=== PATIENT | male | born 1945 | race Caucasian/White ===

== ENCOUNTER 2019-06-06 19:45 | Inpatient (IN) | payer MEDICARE, BC ==
[~2019-06-06] VITALS: Ht 167.6 cm; Wt 84.4 kg
[~2019-06-06 19:45] MED LIST: Acetaminophen PO; LEVO500T2 PO; LOSA50TA3 PO; METF-440 PO; TAMS-3 PO
[2019-06-06] MEDS ORDERED: FENTANYL CITRATE 100 MCG/2 ML AMPUL IV ONE ×2 (21:00→22:15)
[2019-06-06] MEDS ORDERED: ONDANSETRON 4 MG/2 ML VIAL IV ONE ×2 (21:00→22:15)
[2019-06-06] MEDS ORDERED: ONDANSETRON 4 MG/2 ML VIAL ONE ×2 (21:18→22:29)
[2019-06-06] MEDS ORDERED: FENTANYL CITRATE 100 MCG/2 ML AMPUL ONE ×2 (21:18→22:30)
[2019-06-06 22:52] LABS: BASOPHILS # (AUTO) 0.1 K/uL (0.0-8.0); BASOPHILS % (AUTO) 0.3 % (0.0-2.0); EOSINOPHILS % (AUTO) 0.1 % (0.0-7.0); HEMATOCRIT 40.2 % (36.7-47.1); HEMOGLOBIN 12.9 g/dL (12.5-16.3); LYMPHOCYTES # (AUTO) 1.3 K/uL (20.0-40.0); LYMPHOCYTES % (AUTO) 4.8 % (20.5-51.5); MEAN CORPUSCULAR HEMOGLOBIN 28.1 uug (23.8-33.4); MEAN CORPUSCULAR HGB CONC 32 g/dL (32.5-36.3); MEAN CORPUSCULAR VOLUME 87.2 fL (73.0-96.2); MONOCYTES # (AUTO) 1.3 K/uL (2.0-10.0); NEUTROPHILS # (AUTO) 24.2 K/uL (1.8-8.9); NEUTROPHILS % (AUTO) 89.8 % (38.5-71.5); PLATELET COUNT (AUTO) 369 K/uL (152-348); RED BLOOD CELL COUNT(AUTO) 4.61 MIL/uL (4.06-5.63)
[2019-06-06 22:58] LABS: CREATININE 1.1 mg/dL (0.6-1.3); POTASSIUM 5.3 mmol/L (3.5-5.1)
[2019-06-06 23:09] LABS: BILIRUBIN,DIRECT 0.3 mg/dL (0.0-0.2); BILIRUBIN,TOTAL 1.1 mg/dL (0.2-1.0); TOTAL PROTEIN, SERUM 7.7 g/dL (6.4-8.2)
[2019-06-06] MEDS ORDERED: METF-495 PO (23:53)
[2019-06-06] MEDS ORDERED: METO-357 PO (23:53)
[2019-06-06] MEDS ORDERED: LOSA100T3 PO (23:53)
[2019-06-07] MEDS ORDERED: MAGNESIUM HYDROXIDE 30 ML LIQUID UDC PO PRN (01:00)
[2019-06-07] MEDS ORDERED: Z GUARD REMEDY PASTE 57 GM TUBE TOP PRN (01:00)
[2019-06-07] MEDS ORDERED: ACETAMINOPHEN 325 MG TABLET PO PRN (01:00)
[2019-06-07] MEDS ORDERED: HYDROMORPHONE 1 MG/1 ML DISP.SYRIN IV PRN (01:00)
[2019-06-07] MEDS ORDERED: HYDROCODONE/APAP 5-325MG TABLET PO PRN (01:00)
[2019-06-07 01:15] VITALS: BP 136/76
[2019-06-07 06:14] VITALS: BP 125/76
[2019-06-07 11:02] VITALS: BP 105/63
[2019-06-07] MEDS ORDERED: IV NORMAL SALINE 500 ML IV ONE (11:30)
[2019-06-07] MEDS ORDERED: DEXTROSE 50% 50 ML DISP.SYRIN IV PRN (11:30)
[2019-06-07] MEDS: IV NS 1000 ML 1,000 ML IV PRN (12:20)
[2019-06-07] MEDS: INSULIN REGULAR, HUMAN 300 UNIT/3 ML VIAL SQ PRN (12:39)
[2019-06-07] MEDS: BLOOD SUGAR DIAGNOSTIC 1 EACH STRIP VI SCH ×3 (12:40→20:20)
[2019-06-07 15:00] VITALS: BP 115/70
[2019-06-07 17:33] LABS: *BILIRUBIN,URIN 1+ (NEGATIVE); *BLOOD, URINE 2+ (NEGATIVE); *COLOR,URINE DARK YELLOW (YELLOW); *KETONES,URINE TRACE (NEGATIVE); *UROBILINOGEN,URINE 0.2 E.U./dl (NORMAL); LEUKOCYTE ESTERASE ,URINE NEGATIVE (NEGATIVE); NITRITE, URINE NEGATIVE (NEGATIVE); UGLUCOSE NEGATIVE (NEGATIVE)
[2019-06-07 17:44] LABS: *CLARITY,URINE HAZY (CLEAR)
[2019-06-07 17:45] LABS: RBC,URINE 20-50 /HPF (0-3); SQUAMOUS EPITHELIAL CELL,UR FEW /HPF (NONE SEEN)
[2019-06-07 17:46] LABS: MUCUS,URINE MANY /LPF (0-FEW); URINE AMORPHOUS URATE FEW /HPF
[2019-06-07] MEDS: HYDROMORPHONE 2 MG/1 ML DISP.SYRIN IV PRN (19:05)
[2019-06-07 19:44] VITALS: BP 126/61
[2019-06-07] MEDS: INSULIN REGULAR, HUMAN 300 UNITS/3 ML VIAL SQ PRN (20:26)
[2019-06-08] MEDS: IV NS 1000 ML 1,000 ML IV PRN ×2 (02:21→18:05)
[2019-06-08 05:03] VITALS: BP 127/72
[2019-06-08] MEDS: BLOOD SUGAR DIAGNOSTIC 1 EACH STRIP VI SCH ×4 (06:33→21:08)
[2019-06-08 06:49] LABS: BASOPHILS # (AUTO) 0.1 K/uL (0.0-8.0); EOSINOPHILS # (AUTO) 0.4 K/uL (0.0-0.7); LYMPHOCYTES # (AUTO) 1.9 K/uL (20.0-40.0); MONOCYTES # (AUTO) 0.8 K/uL (2.0-10.0)
[2019-06-08 06:53] LABS: BILIRUBIN,DIRECT 0.3 mg/dL (0.0-0.2); BILIRUBIN,TOTAL 1.9 mg/dL (0.2-1.0); CREATININE 0.7 mg/dL (0.6-1.3); MAGNESIUM 1.6 mg/dL (1.8-2.4); PHOSPHOROUS 3.3 mg/dL (2.5-4.9); POTASSIUM 4.6 mmol/L (3.5-5.1); TOTAL PROTEIN, SERUM 6.6 g/dL (6.4-8.2)
[2019-06-08 06:59] LABS: THYROID STIMULATING HORMONE 3.509 mIU/mL (0.358-3.740)
[2019-06-08 07:01] LABS: BASOPHILS % (AUTO) 0.7 % (0.0-2.0); EOSINOPHILS % (AUTO) 4.8 % (0.0-7.0); LYMPHOCYTES % (AUTO) 22.3 % (20.5-51.5); MEAN CORPUSCULAR HEMOGLOBIN 29.2 uug (23.8-33.4); MEAN CORPUSCULAR HGB CONC 33 g/dL (32.5-36.3); MEAN CORPUSCULAR VOLUME 88.2 fL (73.0-96.2); MONOCYTES % (AUTO) 8.9 % (0.0-11.0); NEUTROPHILS % (AUTO) 63.3 % (38.5-71.5); PLATELET COUNT (AUTO) 207 K/uL (152-348)
[2019-06-08 07:02] LABS: NEUTROPHILS # (AUTO) 5.4 K/uL (1.8-8.9)
[2019-06-08 07:06] LABS: HEMATOCRIT 31.7 % (36.7-47.1); HEMOGLOBIN 10.5 g/dL (12.5-16.3); WHITE BLOOD COUNT (AUTO) 8.6 K/uL (3.6-10.2)
[2019-06-08] MEDS: INSULIN REGULAR, HUMAN 300 UNIT/3 ML VIAL SQ PRN ×2 (07:51→12:21)
[2019-06-08] MEDS: HYDROMORPHONE 2 MG/1 ML DISP.SYRIN IV PRN ×2 (09:28→22:16)
[2019-06-08 12:00] VITALS: BP 155/88
[2019-06-08] MEDS: MAGNESIUM SULFATE/D5W 100 ML IV SCH ×2 (12:12→13:39)
[2019-06-08 15:45] VITALS: BP 153/88
[2019-06-08] MEDS ORDERED: HYDR2DIS IV (16:00)
[2019-06-08 18:46] LABS: BASOPHILS # (AUTO) 0.1 K/uL (0.0-8.0); BASOPHILS % (AUTO) 0.7 % (0.0-2.0); EOSINOPHILS # (AUTO) 0.2 K/uL (0.0-0.7); EOSINOPHILS % (AUTO) 2.9 % (0.0-7.0); HEMATOCRIT 29.2 % (36.7-47.1); HEMOGLOBIN 9.6 g/dL (12.5-16.3); LYMPHOCYTES # (AUTO) 1.5 K/uL (20.0-40.0); LYMPHOCYTES % (AUTO) 17.9 % (20.5-51.5); MEAN CORPUSCULAR HEMOGLOBIN 28.9 uug (23.8-33.4); MEAN CORPUSCULAR HGB CONC 33 g/dL (32.5-36.3); MEAN CORPUSCULAR VOLUME 87.8 fL (73.0-96.2); MONOCYTES # (AUTO) 0.8 K/uL (2.0-10.0); MONOCYTES % (AUTO) 9.3 % (0.0-11.0); NEUTROPHILS # (AUTO) 5.7 K/uL (1.8-8.9); NEUTROPHILS % (AUTO) 69.2 % (38.5-71.5); PLATELET COUNT (AUTO) 203 K/uL (152-348); RED BLOOD CELL COUNT(AUTO) 3.33 MIL/uL (4.06-5.63); WHITE BLOOD COUNT (AUTO) 8.3 K/uL (3.6-10.2)
[2019-06-08 19:40] VITALS: BP 144/74
[2019-06-09 05:00] VITALS: BP 157/78
[2019-06-09] MEDS: BLOOD SUGAR DIAGNOSTIC 1 EACH STRIP VI SCH ×4 (06:37→20:29)
[2019-06-09 06:49] LABS: CARBON DIOXIDE 27 mmol/L (21-32); CHLORIDE 105 mmol/L (98-107); CREATININE 0.5 mg/dL (0.6-1.3); GLUCOSE 115 mg/dL (74-106); MAGNESIUM 1.9 mg/dL (1.8-2.4); POTASSIUM 4.6 mmol/L (3.5-5.1); UREA NITROGEN, BLOOD 13 mg/dL (7-18)
[2019-06-09] MEDS: IV NS 1000 ML 1,000 ML IV PRN ×2 (06:53→20:21)
[2019-06-09] MEDS: HYDROMORPHONE 2 MG/1 ML DISP.SYRIN IV PRN (09:32)
[2019-06-09 11:22] LABS: BILIRUBIN,DIRECT 0.4 mg/dL (0.0-0.2); BILIRUBIN,TOTAL 2.3 mg/dL (0.2-1.0); TOTAL PROTEIN, SERUM 6.3 g/dL (6.4-8.2)
[2019-06-09 11:55] VITALS: BP 170/90
[2019-06-09] MEDS: METOPROLOL SUCCINATE XL 50 MG TAB.SR.24H PO SCH (13:52)
[2019-06-09 15:44] VITALS: BP 158/74
[2019-06-09] MEDS: LOSARTAN POTASSIUM 50 MG TABLET PO SCH (20:21)
[2019-06-09] MEDS: INSULIN REGULAR, HUMAN 300 UNITS/3 ML VIAL SQ PRN (20:33)
[2019-06-09 20:51] VITALS: BP 148/84
[2019-06-09] MEDS: ENOXAPARIN SODIUM 40 MG/0.4 ML DISP.SYRIN SQ SCH (21:35)
[2019-06-09] MEDS: KETOROLAC TROMETHAMINE 30 MG INJ IVP SCH (22:30)
[2019-06-10 05:14] VITALS: BP 150/87
[2019-06-10] MEDS: KETOROLAC TROMETHAMINE 30 MG INJ IVP SCH ×3 (05:25→21:58)
[2019-06-10 06:14] LABS: BASOPHILS # (AUTO) 0.1 K/uL (0.0-8.0); BASOPHILS % (AUTO) 1.1 % (0.0-2.0); EOSINOPHILS # (AUTO) 0.4 K/uL (0.0-0.7); EOSINOPHILS % (AUTO) 5.9 % (0.0-7.0); HEMATOCRIT 26.8 % (36.7-47.1); HEMOGLOBIN 8.9 g/dL (12.5-16.3); LYMPHOCYTES # (AUTO) 1.5 K/uL (20.0-40.0); LYMPHOCYTES % (AUTO) 20.6 % (20.5-51.5); MEAN CORPUSCULAR HEMOGLOBIN 28.9 uug (23.8-33.4); MEAN CORPUSCULAR HGB CONC 33 g/dL (32.5-36.3); MEAN CORPUSCULAR VOLUME 87.4 fL (73.0-96.2); MONOCYTES # (AUTO) 0.6 K/uL (2.0-10.0); MONOCYTES % (AUTO) 8.4 % (0.0-11.0); NEUTROPHILS # (AUTO) 4.5 K/uL (1.8-8.9); PLATELET COUNT (AUTO) 210 K/uL (152-348); RED BLOOD CELL COUNT(AUTO) 3.07 MIL/uL (4.06-5.63); WHITE BLOOD COUNT (AUTO) 7.1 K/uL (3.6-10.2)
[2019-06-10 06:23] LABS: ALANINE AMINOTRANSFERASE 7 U/L (16-63); ALKALINE PHOSPHATASE 99 U/L (50-136); ASPARTATE AMINOTRANSFERASE 7 U/L (15-37); BILIRUBIN,DIRECT 0.4 mg/dL (0.0-0.2); BILIRUBIN,TOTAL 3.7 mg/dL (0.2-1.0); CARBON DIOXIDE 26 mmol/L (21-32); CHLORIDE 107 mmol/L (98-107); CREATININE 0.5 mg/dL (0.6-1.3); GLUCOSE 110 mg/dL (74-106); POTASSIUM 4.3 mmol/L (3.5-5.1); TOTAL PROTEIN, SERUM 6.2 g/dL (6.4-8.2); UREA NITROGEN, BLOOD 11 mg/dL (7-18)
[2019-06-10] MEDS: BLOOD SUGAR DIAGNOSTIC 1 EACH STRIP VI SCH ×4 (06:55→21:57)
[2019-06-10] MEDS: IV NS 1000 ML 1,000 ML IV PRN ×2 (09:41→22:53)
[2019-06-10] MEDS: METOPROLOL SUCCINATE XL 50 MG TAB.SR.24H PO SCH ×2 (09:46→09:55)
[2019-06-10 11:01] VITALS: BP 153/85
[2019-06-10 15:15] VITALS: BP 145/75
[2019-06-10] MEDS: ONDANSETRON 4 MG/2 ML VIAL IV PRN (17:15)
[2019-06-10 20:57] VITALS: BP 174/83
[2019-06-10] MEDS: ENOXAPARIN SODIUM 40 MG/0.4 ML DISP.SYRIN SQ SCH (21:06)
[2019-06-10] MEDS: LOSARTAN POTASSIUM 50 MG TABLET PO SCH (21:09)
[2019-06-10] MEDS: ZOLPIDEM 5 MG TABLET PO PRN ×2 (21:09→22:17)
[2019-06-10] MEDS: HYDROMORPHONE 2 MG/1 ML DISP.SYRIN IV PRN (21:42)
[2019-06-11 05:11] VITALS: BP 132/62
[2019-06-11] MEDS: KETOROLAC TROMETHAMINE 30 MG INJ IVP SCH ×2 (06:44→14:06)
[2019-06-11] MEDS: HYDROMORPHONE 2 MG/1 ML DISP.SYRIN IV PRN ×2 (06:44→22:08)
[2019-06-11] MEDS: BLOOD SUGAR DIAGNOSTIC 1 EACH STRIP VI SCH ×4 (06:53→22:08)
[2019-06-11 07:11] LABS: BASOPHILS # (AUTO) 0.1 K/uL (0.0-8.0); BASOPHILS % (AUTO) 0.8 % (0.0-2.0); EOSINOPHILS # (AUTO) 0.4 K/uL (0.0-0.7); EOSINOPHILS % (AUTO) 5.2 % (0.0-7.0); HEMATOCRIT 29.4 % (36.7-47.1); HEMOGLOBIN 9.6 g/dL (12.5-16.3); LYMPHOCYTES # (AUTO) 1.1 K/uL (20.0-40.0); LYMPHOCYTES % (AUTO) 15.3 % (20.5-51.5); MEAN CORPUSCULAR HEMOGLOBIN 28.3 uug (23.8-33.4); MEAN CORPUSCULAR HGB CONC 33 g/dL (32.5-36.3); MEAN CORPUSCULAR VOLUME 86.5 fL (73.0-96.2); MONOCYTES # (AUTO) 0.6 K/uL (2.0-10.0); MONOCYTES % (AUTO) 7.9 % (0.0-11.0); NEUTROPHILS # (AUTO) 5.3 K/uL (1.8-8.9); NEUTROPHILS % (AUTO) 70.8 % (38.5-71.5); PLATELET COUNT (AUTO) 257 K/uL (152-348); WHITE BLOOD COUNT (AUTO) 7.4 K/uL (3.6-10.2)
[2019-06-11 07:23] LABS: BILIRUBIN,DIRECT 0.4 mg/dL (0.0-0.2); BILIRUBIN,TOTAL 3.8 mg/dL (0.2-1.0); CREATININE 0.6 mg/dL (0.6-1.3); POTASSIUM 4.2 mmol/L (3.5-5.1); TOTAL PROTEIN, SERUM 6.6 g/dL (6.4-8.2)
[2019-06-11 08:06] LABS: HEPATITIS A AB, IgM Negative (Negative)
[2019-06-11] MEDS: METOPROLOL SUCCINATE XL 50 MG TAB.SR.24H PO SCH (08:32)
[2019-06-11] MEDS: IV NS 1000 ML 1,000 ML IV PRN (12:46)
[2019-06-11 16:22] VITALS: BP 157/81
[2019-06-11 19:45] VITALS: BP 132/81
[2019-06-11] MEDS: INSULIN REGULAR, HUMAN 300 UNITS/3 ML VIAL SQ PRN (21:00)
[2019-06-11] MEDS: LOSARTAN POTASSIUM 50 MG TABLET PO SCH (21:17)
[2019-06-11] MEDS: ENOXAPARIN SODIUM 40 MG/0.4 ML DISP.SYRIN SQ SCH (22:08)
[2019-06-12] MEDS: IV NS 1000 ML 1,000 ML IV PRN (03:57)
[2019-06-12 05:15] VITALS: BP 153/70
[2019-06-12] MEDS: BLOOD SUGAR DIAGNOSTIC 1 EACH STRIP VI SCH ×4 (06:32→20:49)
[2019-06-12 07:03] LABS: BILIRUBIN,DIRECT 0.4 mg/dL (0.0-0.2); CREATININE 0.6 mg/dL (0.6-1.3)
[2019-06-12 07:04] LABS: ALANINE AMINOTRANSFERASE 8 U/L (16-63); ALKALINE PHOSPHATASE 93 U/L (50-136); ASPARTATE AMINOTRANSFERASE 7 U/L (15-37)
[2019-06-12 07:10] LABS: POTASSIUM 4.1 mmol/L (3.5-5.1)
[2019-06-12 07:11] LABS: BILIRUBIN,TOTAL 3.8 mg/dL (0.2-1.0); CARBON DIOXIDE 26 mmol/L (21-32); CHLORIDE 107 mmol/L (98-107); GLUCOSE 98 mg/dL (74-106); UREA NITROGEN, BLOOD 18 mg/dL (7-18)
[2019-06-12] MEDS: HYDROMORPHONE 2 MG/1 ML DISP.SYRIN IV PRN ×2 (07:23→15:24)
[2019-06-12 07:46] LABS: HEMATOCRIT 27.9 % (40-50); HEMOGLOBIN 9.3 G/DL (14.0-18.0); MEAN CORPUSCULAR HEMOGLOBIN 29.2 UUG (27.0-31.0); MEAN CORPUSCULAR HGB CONC 33 g/dL (32.0-37.0); MEAN CORPUSCULAR VOLUME 87.8 FL (82.0-92.0); NEUTROPHILS % (AUTO) 65.2 % (38.5-71.5); PLATELET COUNT (AUTO) 243 K/UL (150-450); RED BLOOD CELL COUNT(AUTO) 3.17 MIL/UL (4.7-6.1); WHITE BLOOD COUNT (AUTO) 7.7 K/UL (4.0-11.2)
[2019-06-12 07:47] LABS: BASOPHILS # (AUTO) 0.1 K/uL (0.0-8.0); BASOPHILS % (AUTO) 0.7 % (0.0-2.0); EOSINOPHILS # (AUTO) 0.4 K/uL (0.0-0.7); EOSINOPHILS % (AUTO) 5.5 % (0.0-7.0); LYMPHOCYTES # (AUTO) 1.4 K/UL (0.8-4.8); LYMPHOCYTES % (AUTO) 18.6 % (20.5-51.5); MONOCYTES # (AUTO) 0.8 K/UL (0.1-1.30); NEUTROPHILS # (AUTO) 5.1 K/UL (1.8-8.9)
[2019-06-12] MEDS: METOPROLOL SUCCINATE XL 50 MG TAB.SR.24H PO SCH (08:47)
[2019-06-12 11:00] VITALS: BP 160/88
[2019-06-12] MEDS: INSULIN REGULAR, HUMAN 300 UNIT/3 ML VIAL SQ PRN (12:15)
[2019-06-12 16:21] VITALS: BP 128/83
[2019-06-12 19:43] VITALS: BP 163/86
[2019-06-12] MEDS: LOSARTAN POTASSIUM 50 MG TABLET PO SCH (20:30)
[2019-06-12] MEDS: ENOXAPARIN SODIUM 40 MG/0.4 ML DISP.SYRIN SQ SCH (20:48)
[2019-06-13] MEDS: HYDROMORPHONE 2 MG/1 ML DISP.SYRIN IV PRN ×2 (04:16→21:23)
[2019-06-13 04:18] VITALS: BP 161/79
[2019-06-13] MEDS: BLOOD SUGAR DIAGNOSTIC 1 EACH STRIP VI SCH ×4 (06:56→21:26)
[2019-06-13] MEDS: METOPROLOL SUCCINATE XL 50 MG TAB.SR.24H PO SCH (08:32)
[2019-06-13 11:33] VITALS: BP 157/87
[2019-06-13] MEDS: INSULIN REGULAR, HUMAN 300 UNIT/3 ML VIAL SQ PRN ×3 (11:57→21:29)
[2019-06-13 16:00] VITALS: BP 158/86
[2019-06-13 20:51] VITALS: BP 162/86
[2019-06-13] MEDS: LOSARTAN POTASSIUM 50 MG TABLET PO SCH (21:21)
[2019-06-13] MEDS: ENOXAPARIN SODIUM 40 MG/0.4 ML DISP.SYRIN SQ SCH (21:30)
[2019-06-14 05:25] VITALS: BP 155/81
[2019-06-14] MEDS: BLOOD SUGAR DIAGNOSTIC 1 EACH STRIP VI SCH ×4 (06:39→20:48)
[2019-06-14 06:58] LABS: HEMATOCRIT 28.8 % (40-50); HEMOGLOBIN 9.6 G/DL (14.0-18.0); MEAN CORPUSCULAR VOLUME 87.4 FL (82.0-92.0); WHITE BLOOD COUNT (AUTO) 7.6 K/UL (4.0-11.2)
[2019-06-14 06:59] LABS: ALKALINE PHOSPHATASE 96 U/L (50-136); BILIRUBIN,DIRECT 0.5 mg/dL (0.0-0.2); BILIRUBIN,TOTAL 4.3 mg/dL (0.1-1.0); CARBON DIOXIDE 27 mmol/L (21-32); CHLORIDE 104 mmol/L (98-107); CREATININE 0.5 mg/dL (0.6-1.3); EOSINOPHILS # (AUTO) 0.3 K/uL (0.0-0.7); EOSINOPHILS % (AUTO) 4.5 % (0.0-7.0); GLUCOSE 123 mg/dL (74-106); LYMPHOCYTES # (AUTO) 1.8 K/UL (0.8-4.8); LYMPHOCYTES % (AUTO) 23.2 % (20.5-51.5); MEAN CORPUSCULAR HGB CONC 33 g/dL (32.0-37.0); MONOCYTES # (AUTO) 0.7 K/UL (0.1-1.30); MONOCYTES % (AUTO) 9.4 % (0.0-11.0); NEUTROPHILS # (AUTO) 4.7 K/UL (1.8-8.9); NEUTROPHILS % (AUTO) 61.9 % (38.5-71.5); PLATELET COUNT (AUTO) 304 K/UL (150-450); POTASSIUM 4.1 mmol/L (3.5-5.1); UREA NITROGEN, BLOOD 17 mg/dL (7-20)
[2019-06-14 07:00] LABS: ALANINE AMINOTRANSFERASE < 6 U/L (16-63); ASPARTATE AMINOTRANSFERASE 7 U/L (15-37); BASOPHILS # (AUTO) 0.1 K/uL (0.0-8.0); TOTAL PROTEIN, SERUM 6.6 g/dL (6.4-8.2)
[2019-06-14] MEDS: MULTIVIT, IRON, MIN NO. 8, FA TABLET PO SCH (09:25)
[2019-06-14] MEDS: METOPROLOL SUCCINATE XL 50 MG TAB.SR.24H PO SCH (09:27)
[2019-06-14 12:12] VITALS: BP 132/70
[2019-06-14] MEDS: INSULIN REGULAR, HUMAN 300 UNIT/3 ML VIAL SQ PRN ×2 (12:23→16:45)
[2019-06-14] MEDS: LORAZEPAM 0.5 MG TABLET PO PRN (12:32)
[2019-06-14 16:15] VITALS: BP 153/85
[2019-06-14 19:59] VITALS: BP 169/89
[2019-06-14] MEDS: LOSARTAN POTASSIUM 50 MG TABLET PO SCH (20:39)
[2019-06-14] MEDS: ZOLPIDEM 5 MG TABLET PO PRN (20:41)
[2019-06-14] MEDS: INSULIN REGULAR, HUMAN 300 UNITS/3 ML VIAL SQ PRN (20:47)
[2019-06-14] MEDS: ENOXAPARIN SODIUM 40 MG/0.4 ML DISP.SYRIN SQ SCH (20:48)
[2019-06-14] MEDS ORDERED: ALBUTEROL SULFATE 2.5 MG/3 ML NEBU NEB PRN (22:30)
[2019-06-14] MEDS ORDERED: GUAIFENESIN/DEXTROMETHORPHAN TAB.SR.12H PO ONE (22:35)
[2019-06-14] MEDS ORDERED: GUAIFENESIN LA 600 MG TABLET.SA PO ONE (23:09)
[2019-06-15 05:00] VITALS: BP 141/68
[2019-06-15] MEDS: BLOOD SUGAR DIAGNOSTIC 1 EACH STRIP VI SCH ×4 (06:31→20:29)
[2019-06-15] MEDS: MULTIVIT, IRON, MIN NO. 8, FA TABLET PO SCH (08:08)
[2019-06-15] MEDS: GUAIFENESIN/DEXTROMETHORPHAN TAB.SR.12H PO SCH ×2 (08:09→20:36)
[2019-06-15] MEDS: METOPROLOL SUCCINATE XL 50 MG TAB.SR.24H PO SCH (08:09)
[2019-06-15 11:22] VITALS: BP 141/72
[2019-06-15] MEDS: INSULIN REGULAR, HUMAN 300 UNIT/3 ML VIAL SQ PRN ×2 (12:07→17:18)
[2019-06-15 15:21] VITALS: BP 142/78
[2019-06-15] MEDS: LOSARTAN POTASSIUM 50 MG TABLET PO SCH (20:18)
[2019-06-15 20:21] VITALS: BP 124/66
[2019-06-15] MEDS: ENOXAPARIN SODIUM 40 MG/0.4 ML DISP.SYRIN SQ SCH (20:26)
[2019-06-15] MEDS: INSULIN REGULAR, HUMAN 300 UNITS/3 ML VIAL SQ PRN (20:31)
[2019-06-16 05:56] LABS: BASOPHILS # (AUTO) 0.1 K/uL (0.0-8.0); BASOPHILS % (AUTO) 0.7 % (0.0-2.0); EOSINOPHILS # (AUTO) 0.4 K/uL (0.0-0.7); EOSINOPHILS % (AUTO) 4.2 % (0.0-7.0); HEMATOCRIT 27.3 % (36.7-47.1); HEMOGLOBIN 9.1 g/dL (12.5-16.3); LYMPHOCYTES # (AUTO) 2.1 K/uL (20.0-40.0); LYMPHOCYTES % (AUTO) 21.6 % (20.5-51.5); MEAN CORPUSCULAR HGB CONC 33 g/dL (32.5-36.3); MONOCYTES # (AUTO) 0.9 K/uL (2.0-10.0); MONOCYTES % (AUTO) 8.9 % (0.0-11.0); NEUTROPHILS # (AUTO) 6.4 K/uL (1.8-8.9); NEUTROPHILS % (AUTO) 64.6 % (38.5-71.5); PLATELET COUNT (AUTO) 367 K/uL (152-348); RED BLOOD CELL COUNT(AUTO) 3.14 MIL/uL (4.06-5.63)
[2019-06-16 06:14] LABS: BILIRUBIN,DIRECT 0.5 mg/dL (0.0-0.2); CREATININE 0.6 mg/dL (0.6-1.3); POTASSIUM 4.1 mmol/L (3.5-5.1)
[2019-06-16] MEDS: BLOOD SUGAR DIAGNOSTIC 1 EACH STRIP VI SCH ×4 (06:32→21:00)
[2019-06-16 06:42] VITALS: BP 136/77
[2019-06-16] MEDS: MULTIVIT, IRON, MIN NO. 8, FA TABLET PO SCH (08:23)
[2019-06-16] MEDS: GUAIFENESIN/DEXTROMETHORPHAN TAB.SR.12H PO SCH ×2 (08:23→21:00)
[2019-06-16] MEDS: METOPROLOL SUCCINATE XL 50 MG TAB.SR.24H PO SCH (08:24)
[2019-06-16] MEDS: HYDROMORPHONE 2 MG/1 ML DISP.SYRIN IV PRN (10:59)
[2019-06-16 11:44] VITALS: BP 160/84
[2019-06-16] MEDS: INSULIN REGULAR, HUMAN 300 UNIT/3 ML VIAL SQ PRN ×2 (12:54→17:26)
[2019-06-16] MEDS: LIDOCAINE 5% PATCH TD SCH (15:00)
[2019-06-16 20:37] VITALS: BP 117/51
[2019-06-16] MEDS: ENOXAPARIN SODIUM 40 MG/0.4 ML DISP.SYRIN SQ SCH (21:00)
[2019-06-16] MEDS: LOSARTAN POTASSIUM 50 MG TABLET PO SCH (21:00)
[2019-06-17] MEDS: LORAZEPAM 0.5 MG TABLET PO PRN (02:41)
[2019-06-17] MEDS: ONDANSETRON 4 MG/2 ML VIAL IV PRN (02:41)
[2019-06-17] MEDS: BLOOD SUGAR DIAGNOSTIC 1 EACH STRIP VI SCH ×4 (06:43→20:23)
[2019-06-17] MEDS: MULTIVIT, IRON, MIN NO. 8, FA TABLET PO SCH (09:09)
[2019-06-17] MEDS: LIDOCAINE 5% PATCH TD SCH (09:09)
[2019-06-17] MEDS: METOPROLOL SUCCINATE XL 50 MG TAB.SR.24H PO SCH (09:10)
[2019-06-17] MEDS: GUAIFENESIN/DEXTROMETHORPHAN TAB.SR.12H PO SCH ×2 (09:47→20:13)
[2019-06-17 12:03] VITALS: BP 136/76
[2019-06-17] MEDS: HYDROCODONE/APAP 5-325MG TABLET PO PRN (12:03)
[2019-06-17] MEDS ORDERED: LIDO30AD10 TD (12:04)
[2019-06-17] MEDS: INSULIN REGULAR, HUMAN 300 UNIT/3 ML VIAL SQ PRN ×2 (12:34→17:26)
[2019-06-17 16:00] VITALS: BP 133/71
[2019-06-17 19:49] VITALS: BP 143/70
[2019-06-17] MEDS: LOSARTAN POTASSIUM 50 MG TABLET PO SCH (20:12)
[2019-06-17] MEDS: ENOXAPARIN SODIUM 40 MG/0.4 ML DISP.SYRIN SQ SCH ×2 (20:13→20:28)
[2019-06-17] MEDS: INSULIN REGULAR, HUMAN 300 UNITS/3 ML VIAL SQ PRN (20:24)
[2019-06-17] MEDS: ZOLPIDEM 5 MG TABLET PO PRN (22:28)
[2019-06-18 04:50] VITALS: BP 135/76
[2019-06-18] MEDS: BLOOD SUGAR DIAGNOSTIC 1 EACH STRIP VI SCH ×4 (06:33→20:19)
[2019-06-18] MEDS: GUAIFENESIN/DEXTROMETHORPHAN TAB.SR.12H PO SCH ×2 (08:18→20:28)
[2019-06-18] MEDS: LIDOCAINE 5% PATCH TD SCH (08:18)
[2019-06-18] MEDS: MULTIVIT, IRON, MIN NO. 8, FA TABLET PO SCH (08:18)
[2019-06-18] MEDS: METOPROLOL SUCCINATE XL 50 MG TAB.SR.24H PO SCH (08:18)
[2019-06-18] MEDS ORDERED: LIDOCAINE 5% PATCH TD SCH (09:00)
[2019-06-18 11:16] VITALS: BP 121/69
[2019-06-18] MEDS: INSULIN REGULAR, HUMAN 300 UNIT/3 ML VIAL SQ PRN ×3 (12:03→20:27)
[2019-06-18] MEDS: HYDROCODONE/APAP 5-325MG TABLET PO PRN (14:50)
[2019-06-18] MEDS: LOSARTAN POTASSIUM 50 MG TABLET PO SCH (20:11)
[2019-06-18] MEDS: HYDROMORPHONE 2 MG/1 ML DISP.SYRIN IV PRN (20:11)
[2019-06-18 20:24] VITALS: BP 145/75
[2019-06-18] MEDS: ENOXAPARIN SODIUM 40 MG/0.4 ML DISP.SYRIN SQ SCH (20:28)
[2019-06-19 05:32] VITALS: BP 120/74
[2019-06-19] MEDS: BLOOD SUGAR DIAGNOSTIC 1 EACH STRIP VI SCH ×2 (06:32→11:30)
[2019-06-19] MEDS: MULTIVIT, IRON, MIN NO. 8, FA TABLET PO SCH (09:03)
[2019-06-19] MEDS: GUAIFENESIN/DEXTROMETHORPHAN TAB.SR.12H PO SCH (09:04)
[2019-06-19] MEDS: LIDOCAINE 5% PATCH TD SCH (09:04)
[2019-06-19] MEDS: METOPROLOL SUCCINATE XL 50 MG TAB.SR.24H PO SCH (09:05)
[2019-06-19 09:11] VITALS: BP 136/76
[2019-06-19] MEDS: HYDROMORPHONE 2 MG/1 ML DISP.SYRIN IV PRN (12:08)
[2019-06-19] MEDS ORDERED: HYDR-3326 PO (12:26)
== END 2019-06-19 13:00 | disposition home or self-care (01) | DRG 551 ==
LOC: ER 19:49 → MEDSURG3 23:40 → UNDOADMIN 06-07 00:33 → MEDSURG3 06-07 00:33
PROVIDERS: ADMIT Student in an Organized Health Care Education/Training Program; ATTEND Nurse Practitioner Acute Care
DX: S32.018A Other fracture of first lumbar vertebra, initial encounter for closed fracture (principal); R53.2 Functional quadriplegia; E43 Unspecified severe protein-calorie malnutrition; W17.89XA Other fall from one level to another, initial encounter; Y93.89 Activity, other specified; Y92.019 Unspecified place in single-family (private) house as the place of occurrence of the external cause; G71.00 Muscular dystrophy, unspecified; M45.6 Ankylosing spondylitis lumbar region; E86.0 Dehydration; E80.4 Gilbert syndrome; G35 Multiple sclerosis; M48.16 Ankylosing hyperostosis [Forestier], lumbar region; F32.9 Major depressive disorder, single episode, unspecified; M25.78 Osteophyte, vertebrae; I10 Essential (primary) hypertension; M48.02 Spinal stenosis, cervical region; E87.5 Hyperkalemia; E11.42 Type 2 diabetes mellitus with diabetic polyneuropathy; Z79.84 Long term (current) use of oral hypoglycemic drugs; K80.20 Calculus of gallbladder without cholecystitis without obstruction; D63.8 Anemia in other chronic diseases classified elsewhere; Z68.30 Body mass index [BMI] 30.0-30.9, adult; D72.829 Elevated white blood cell count, unspecified; Z79.899 Other long term (current) drug therapy; Z90.49 Acquired absence of other specified parts of digestive tract; M51.9 Unspecified thoracic, thoracolumbar and lumbosacral intervertebral disc disorder
CPT/HCPCS: 36415; 70030-TC; 72100; 72125; 72131; 76700; 83690; 83735; 84100; 84443; 85025; 85730; 86705; 86709; 86803; 87340; 87350; 93005; 94664; A4663; G0378; J1170; J1650; J1815; J1885; J2405; J3010; J3475; J7030; J7040

== ENCOUNTER 2022-01-30 23:43 | Inpatient (IN) | payer MEDICARE, BC ==
[~2022-01-30] VITALS: Ht 170.2 cm; Wt 90.7 kg
[~2022-01-30 23:43] MED LIST changes: -Acetaminophen PO; +HYDR-3326 PO; -LEVO500T2 PO; +LIDO30AD10 TD; +LOSA100T3 PO; -LOSA50TA3 PO; -METF-440 PO; +METF-495 PO; +METO-357 PO; -TAMS-3 PO
[2022-01-31] MEDS ORDERED: ONDANSETRON 4 MG/2 ML VIAL ONE ×3 (00:15→14:17)
--- NOTE | 2022-01-31 00:15 | NUR ---
Patient is a/ox4, NAD noted
[2022-01-31] MEDS ORDERED: FENTANYL CITRATE 100 MCG/2 ML AMPUL ONE ×2 (00:16→03:15)
[2022-01-31 00:21] LABS: HEMATOCRIT 44.1 % (36.7-47.1); MEAN CORPUSCULAR HEMOGLOBIN 29.7 uug (23.8-33.4); MEAN CORPUSCULAR VOLUME 88.6 fL (73.0-96.2); PLATELET COUNT (AUTO) 367 K/uL (152-348)
[2022-01-31] MEDS ORDERED: PIPERACILLIN SODIUM/TAZOBACTAM 3.375 G in IV DEXTROSE 5% 50 ML IV ONE (00:30)
[2022-01-31] MEDS ORDERED: PIPERACILLIN/TAZOBACTAM/D5W 50 ML IV ONE ×3 (00:34→14:02)
--- NOTE | 2022-01-31 00:40 | NUR ---
PATIENT IS PAIN FREE AT THIS TIME.
[2022-01-31 00:47] LABS: ALANINE AMINOTRANSFERASE 453 U/L (16-63); ALKALINE PHOSPHATASE 375 U/L (50-136); ASPARTATE AMINOTRANSFERASE 219 U/L (15-37); BILIRUBIN,DIRECT 5.7 mg/dL (0.0-0.2); CARBON DIOXIDE 24 mmol/L (21-32); CHLORIDE 96 mmol/L (98-107); CREATININE 0.7 mg/dL (0.6-1.3); GLUCOSE 208 mg/dL (74-106); POTASSIUM 4.3 mmol/L (3.5-5.1); TOTAL PROTEIN, SERUM 9.3 g/dL (6.4-8.2); UREA NITROGEN, BLOOD 23 mg/dL (7-18)
--- NOTE | 2022-01-31 01:00 | NUR ---
Spoke with supervisor cook house Luisa GARRISON for med/surg bed. Will call me back
[2022-01-31] MEDS ORDERED: BENA40TA8 PO (01:12)
[2022-01-31 01:19] LABS: LIPASE > 6000 U/L (73-393)
[2022-01-31] MEDS ORDERED: IV NS 1000 ML 1,000 ML IV ONE ×3 (02:30→03:00)
[2022-01-31] MEDS ORDERED: ONDANSETRON 4 MG/2 ML VIAL IV ONE ×2 (02:30)
--- NOTE | 2022-01-31 02:32 | NUR ---
Paged Epic panel, waiting for Dmitry DESIGN TECHNOLOGY TEACHER assembler carbon brushes for epic to call back.
[2022-01-31] MEDS ORDERED: MORPHINE SULFATE 2 MG/1 ML DISP.SYRIN IV ONE (02:45)
--- NOTE | 2022-01-31 02:46 | NUR ---
paged Dr Kelly
[2022-01-31] MEDS ORDERED: MORPHINE SULFATE 2 MG/1 ML DISP.SYRIN ONE ×2 (02:47→14:17)
--- NOTE | 2022-01-31 02:53 | NUR ---
Paged Dr Tran for surgery consult. Waiting for call back.
--- NOTE | 2022-01-31 02:56 | NUR ---
notified Dr Jara for 2.5 Trop. Ordered to bolus IV NS instead of 125mls/hr
--- NOTE | 2022-01-31 03:05 | NUR ---
Called [facility]. No beds available
--- NOTE | 2022-01-31 03:05 | NUR ---
Dr Jara spoke to Kayla Andres NP building construction contractor for [facility] group who accept patient to [facility] R bed.
[2022-01-31] MEDS ORDERED: FENTANYL CITRATE 100 MCG/2 ML AMPUL IV ONE ×2 (03:15)
--- NOTE | 2022-01-31 04:26 | NUR ---
spoke with warehouse stock clerk Luisa GARRISON. Patient will be transfered to JUAN R AM shift
--- NOTE | 2022-01-31 04:45 | NUR ---
per Luisa RN, patient will be admitted JU[facility] R room 302 AM shift
--- NOTE | 2022-01-31 05:06 | NUR ---
Paged Dr Tran for surgery consult. Will call us back
[2022-01-31] MEDS ORDERED: MAGNESIUM HYDROXIDE 30 ML LIQUID UDC PO PRN (05:30)
[2022-01-31] MEDS ORDERED: ONDANSETRON 4 MG/2 ML VIAL IV PRN (05:30)
[2022-01-31] MEDS ORDERED: ACETAMINOPHEN 325 MG TABLET PO PRN (05:30)
[2022-01-31] MEDS ORDERED: IV NS 1000 ML 1,000 ML IV PRN (05:30)
[2022-01-31] MEDS ORDERED: PIPERACILLIN SODIUM/TAZOBACTAM 3.375 G in IV DEXTROSE 5% 50 ML IV SCH (06:00)
--- NOTE | 2022-01-31 06:15 | NUR ---
Spoke to Luisa GARRISON, patient will not go to room 302. Will call us back for new bed assignment
[2022-01-31 06:21] LABS: HEMATOCRIT 35.2 % (36.7-47.1); MEAN CORPUSCULAR HEMOGLOBIN 29.5 uug (23.8-33.4); MEAN CORPUSCULAR VOLUME 88.4 fL (73.0-96.2); PLATELET COUNT (AUTO) 243 K/uL (152-348)
[2022-01-31 06:37] LABS: CARBON DIOXIDE 23 mmol/L (21-32); CHLORIDE 102 mmol/L (98-107); CREATININE 0.8 mg/dL (0.6-1.3); GLUCOSE 165 mg/dL (74-106); MAGNESIUM 1.4 mg/dL (1.8-2.4); PHOSPHOROUS 3.3 mg/dL (2.5-4.9); POTASSIUM 4.1 mmol/L (3.5-5.1); UREA NITROGEN, BLOOD 24 mg/dL (7-18)
--- NOTE | 2022-01-31 07:08 | NUR ---
report given to Saige GARRISON
[2022-01-31 07:21] LABS: *CLARITY,URINE CLEAR (CLEAR); *COLOR,URINE YELLOW (YELLOW); *KETONES,URINE TRACE (NEGATIVE); LEUKOCYTE ESTERASE ,URINE NEGATIVE (NEGATIVE); NITRITE, URINE NEGATIVE (NEGATIVE); PH,URINE 5.5 (5.0-8.0); UGLUCOSE NEGATIVE (NEGATIVE)
--- NOTE | 2022-01-31 07:23 | NUR ---
Landscaping And Groundskeeping Laborer assumes care: AOX3-4, marked weakness on all extremities, chronic qaudriparesis/quadriplegia. Patient is able to weaknly move his fingers on command but unable to wiggle toes, awaiting for available JUAN R(?) vs telemetry nurse. Patient verbally expressed having mild abdominal pains,"...about 1/10 in pain scale" per patient, respiration: easy, afebrile & calm. Patient was placed on continuous cardiac, BP & SpO2 monitors w/ alarms set, on & audible.
--- NOTE | 2022-01-31 07:30 | NUR ---
Per ER Doctor Estefani's notes, GI and surgery consultants were notified earlier today (before 7am), pending consultants' arrival/evaluation at this time. Patient was updated re: GI & surgery consults pending
[2022-01-31 08:08] LABS: *BILIRUBIN,URIN 2+ (NEGATIVE); *BLOOD, URINE TRACE (NEGATIVE)
--- NOTE | 2022-01-31 09:29 | NUR ---
Nursing special services supervisor Espinoza was notified earlier re: This patient is waiting for an available inpatient nurse & bed still, pending updates from nursing special services supervisor@this time.
--- NOTE | 2022-01-31 10:53 | NUR ---
face to face notification: "No telemetry or JUAN R nurse available for now." per nursing supervisor cell room Espinoza. Patient and Krysta (daughter) were updated.
--- NOTE | 2022-01-31 11:33 | NUR ---
Patient is resting comfortably on gurney with eyes closed. EVS notified re: clean hospital inpatient bed please for this patient
--- NOTE | 2022-01-31 11:59 | NUR ---
EPIC [email or web address] (JUAN Coello).
--- NOTE | 2022-01-31 12:21 | NUR ---
Frequent updates were done by credit charge authorizer Vanna to daughter and patient. Nursing supervisor slitting and shipping Espinoza said that there is still no available inpatient nurse for this patient at this time.
--- NOTE | 2022-01-31 12:53 | NUR ---
Patient was seen talking to his family via his private cellphone, no acute change in patient's condition seen.
[2022-01-31] MEDS: PIPERACILLIN SODIUM/TAZOBACTAM 3.375 G in IV DEXTROSE 5% 100 ML IV SCH ×2 (13:59→22:28)
[2022-01-31] MEDS: MORPHINE SULFATE 2 MG/1 ML DISP.SYRIN IV PRN ×2 (14:27→19:59)
--- NOTE | 2022-01-31 14:50 | NUR ---
Patient left for [facility] for MRCP in stable condition with BLS ambulance.
[2022-01-31] MEDS ORDERED: IV D5/ 0.9% NACL 1,000 ML IV PRN (15:30)
[2022-01-31] MEDS: MAGNESIUM SULFATE/D5W 100 ML IV SCH ×3 (15:45→21:16)
[2022-01-31 15:48] LABS: BACTERIA,URINE RARE /HPF (NONE SEEN); SQUAMOUS EPITHELIAL CELL,UR FEW /HPF (NONE SEEN); WBC,URINE 0-3 /HPF (0-3)
[2022-01-31 15:49] LABS: URINE AMORPHOUS URATE MANY /HPF
--- NOTE | 2022-01-31 16:37 | NUR ---
Patient came back from [facility] in same condition. Patient went straight to room 309. Patient's family was updated via phone.
[2022-01-31 16:45] VITALS: BP 146/82
--- NOTE | 2022-01-31 17:00 | NUR ---
Patient admitted to telemetry, AAO x4. Able to make needs known, c/o chronic back pain due to lumbar compression fractures. Patient is bed bound, quadriparesis, able to move fingers. Soft touch call light ordered from [employer]. eyes are DEVONTE. Denies any chest pain. Denies any nausea at this time, c/o nausea earlier in the day. ABD is soft and non distended, no abd pain at this time. IV started to left FA, patient tolerated procedure well. Patient verbalizes understanding of NPO status. As per patient request. Nursing senior manufacturing supervisor authorizes patients caregiver to spend the night if caregiver is vaccinated.
--- NOTE | 2022-01-31 19:00 | NUR ---
Patient is NSR on telemetry.
--- NOTE | 2022-01-31 19:50 | NUR ---
Received patient lying in bed. AAOx4. In no acute distress. Denies any SOB. Complain of back pain. Will provide pain medication. Informed patient that skin assessment need for admission. Patient stated " My skin is good, my caregiver takes care of me". Refused to have skin assessment done.
[2022-01-31 20:00] VITALS: BP 150/69
--- NOTE | 2022-01-31 20:30 | NUR ---
JUAN Coello into visit and spoke to patient. Pt for ERCP tomorrow at [facility]. Per JUAN Coello, pt can have sips of liquids and jello if requested but keep order as NPO.
--- NOTE | 2022-01-31 21:10 | NUR ---
Patient requested water and given. Took 120ml of water.
[2022-02-01] VITALS: BP 128/55
[2022-02-01 04:00] VITALS: BP 109/37
[2022-02-01] MEDS: PIPERACILLIN SODIUM/TAZOBACTAM 3.375 G in IV DEXTROSE 5% 100 ML IV SCH (05:01)
--- NOTE | 2022-02-01 05:21 | NUR ---
Slept well during the night. In no acute distress. Denies any further pain or SOB. NSR on tele with HR of 88/min. IV site on left FA and right wrist area remains intact. IVF infusing. No adverse effect noted from IV antibiotic. Needs attended to and met. Safety measure maintained and call light within reached.
[2022-02-01 06:51] LABS: HEMATOCRIT 34.9 % (36.7-47.1); MEAN CORPUSCULAR HEMOGLOBIN 29.6 uug (23.8-33.4); MEAN CORPUSCULAR VOLUME 88.1 fL (73.0-96.2); PLATELET COUNT (AUTO) 220 K/uL (152-348)
[2022-02-01 07:07] LABS: BILIRUBIN,DIRECT 3.4 mg/dL (0.0-0.2); BILIRUBIN,TOTAL 5.6 mg/dL (0.2-1.0); CREATININE 0.7 mg/dL (0.6-1.3); PHOSPHOROUS 2.9 mg/dL (2.5-4.9); POTASSIUM 3.7 mmol/L (3.5-5.1); TOTAL PROTEIN, SERUM 7.1 g/dL (6.4-8.2)
[2022-02-01 07:53] VITALS: BP 139/78
[2022-02-01] MEDS: MORPHINE SULFATE 2 MG/1 ML DISP.SYRIN IV PRN (08:09)
--- NOTE | 2022-02-01 08:09 | NUR ---
Reports of back pain. Morphine 2 mg IV given.
[2022-02-01] MEDS ORDERED: CYCLOBENZAPRINE HCL 10 MG TABLET PO PRN (11:15)
[2022-02-01 11:24] VITALS: BP 126/76
[2022-02-01] MEDS ORDERED: PIPE3.379 IV (12:31)
[2022-02-01] MEDS ORDERED: CYCL10TA9 PO (12:49)
--- NOTE | 2022-02-01 13:47 | NUR ---
With discharge order to [facility] for higher level of care. Patient for ERCP and possible surgery. Report given to Suzy. Saline lock intact to LFA and right Wrist. Condom catheter intact to drainage bag. Transferred via gurney/ambulance in fair condition, not in distress, afebrile.
== END 2022-02-01 14:00 | disposition short-term general hospital (02) | DRG 444 ==
LOC: ER 23:48 → TRANSITION 01-31 09:57 → TELE3 01-31 16:20
PROVIDERS: ADMIT Nurse Practitioner Family; ATTEND Nurse Practitioner Family
DX: K80.42 Calculus of bile duct with acute cholecystitis without obstruction (principal); G82.50 Quadriplegia, unspecified; K85.10 Biliary acute pancreatitis without necrosis or infection; E87.1 Hypo-osmolality and hyponatremia; E87.2 Acidosis; G35 Multiple sclerosis; E11.9 Type 2 diabetes mellitus without complications; E86.1 Hypovolemia; I10 Essential (primary) hypertension; G71.00 Muscular dystrophy, unspecified; Z79.84 Long term (current) use of oral hypoglycemic drugs; Z20.822 Contact with and (suspected) exposure to COVID-19
CPT/HCPCS: 36415; 74181; 83605; 83690; 83735; 84100; 84484; 85025; 87040; 93005; A4663; G0378; J2270; J2405; J2543; J3010; J3475; J7040; J7042

== ENCOUNTER 2022-06-28 15:28 | Inpatient (IN) | payer MEDICARE, BC ==
[~2022-06-28] VITALS: Ht 170.2 cm; Wt 90.7 kg
[~2022-06-28 15:28] MED LIST changes: +BENA40TA8 PO; +CYCL10TA9 PO; -HYDR-3326 PO; -LIDO30AD10 TD; -LOSA100T3 PO; -METF-495 PO; -METO-357 PO; +PIPE3.379 IV
[2022-06-28] MEDS ORDERED: ACETAMINOPHEN ES 500 MG TABLET PO ONE (15:45)
[2022-06-28 16:05] LABS: HEMATOCRIT 40.5 % (36.7-47.1); MEAN CORPUSCULAR HEMOGLOBIN 29.4 uug (23.8-33.4); MEAN CORPUSCULAR VOLUME 88.8 fL (73.0-96.2); PLATELET COUNT (AUTO) 245 K/uL (152-348)
[2022-06-28] MEDS ORDERED: ACETAMINOPHEN ES 500 MG TABLET ONE (16:06)
[2022-06-28 16:09] LABS: *BILIRUBIN,URIN NEGATIVE (NEGATIVE); *BLOOD, URINE NEGATIVE (NEGATIVE); *CLARITY,URINE CLEAR (CLEAR); *COLOR,URINE YELLOW (YELLOW); *KETONES,URINE NEGATIVE (NEGATIVE); *UROBILINOGEN,URINE 0.2 E.U./dl (NORMAL); LEUKOCYTE ESTERASE ,URINE NEGATIVE (NEGATIVE); NITRITE, URINE NEGATIVE (NEGATIVE); UGLUCOSE NEGATIVE (NEGATIVE)
[2022-06-28 16:27] LABS: CARBON DIOXIDE 26 mmol/L (21-32); CHLORIDE 99 mmol/L (98-107); CREATININE 0.8 mg/dL (0.6-1.3); GLUCOSE 147 mg/dL (74-106); POTASSIUM 4.3 mmol/L (3.5-5.1); UREA NITROGEN, BLOOD 19 mg/dL (7-18)
[2022-06-28 16:41] LABS: ALANINE AMINOTRANSFERASE 23 U/L (16-63); ALKALINE PHOSPHATASE 83 U/L (50-136); ASPARTATE AMINOTRANSFERASE 12 U/L (15-37); BILIRUBIN,DIRECT 0.3 mg/dL (0.0-0.2); BILIRUBIN,TOTAL 1.6 mg/dL (0.2-1.0); TOTAL PROTEIN, SERUM 8.2 g/dL (6.4-8.2)
[2022-06-28 16:56] LABS: RBC,URINE 0-3 /HPF (0-3); WBC,URINE 0-3 /HPF (0-3)
[2022-06-28 16:57] LABS: BACTERIA,URINE NONE SEEN /HPF (NONE SEEN); SQUAMOUS EPITHELIAL CELL,UR FEW /HPF (NONE SEEN)
[2022-06-28] MEDS ORDERED: DEXAMETHASONE SOD PHOSPHATE 4 MG INJ IV ONE (17:00)
[2022-06-28] MEDS ORDERED: DEXAMETHASONE SOD PHOSPHATE 4 MG INJ ONE (17:02)
[2022-06-28 18:53] VITALS: BP 103/69
--- NOTE | 2022-06-28 19:04 | NUR ---
PATIENT ARRIVED ON FLOOR @1850 VIA FROM ED. A&OX4 AND ABLE TO MAKE MY NEEDS KNOW. DENIES PAIN. O2 NOTED AT 2L NC. CONDOM CATH IN PLACE, BRIGHT YELLOW URINE ALSO NOTED.
--- NOTE | 2022-06-28 19:35 | NUR ---
Received patient resting in bed comfortably. No signs of distress noted at this time. On 2L O2 NC. ST on tele monitor, HR 104. Is not complaining of any pain at this time. Right FA IV site is intact and patent, saline lock at this time. Condom catheter is clean and intact. Will follow for pending orders for new admit. Endorsed safety and comfort measures.
[2022-06-28 21:06] VITALS: BP 133/79
[2022-06-28] MEDS ORDERED: ONDANSETRON 4 MG/2 ML VIAL IV PRN (21:45)
[2022-06-28] MEDS ORDERED: AZITHROMYCIN IV 250 MG in IV DEXTROSE 5% 250 ML IV SCH (21:45)
[2022-06-28] MEDS ORDERED: ACETAMINOPHEN 325 MG TABLET PO PRN (21:45)
[2022-06-29] VITALS: BP 132/79
[2022-06-29] MEDS ORDERED: AZITHROMYCIN 500 MG VIAL IV ONE (02:46)
[2022-06-29 04:00] VITALS: BP 134/78
--- NOTE | 2022-06-29 05:20 | NUR ---
Patient slept comfortably throughout the night. No complaints of pain or SOB. Antibiotics administered. Coughs out green sputum on occasion. SR on tele monitor, HR 86. Maintained safety and comfort care. Patient was thankful for personal care.
[2022-06-29 07:14] LABS: HEMATOCRIT 38.8 % (36.7-47.1); MEAN CORPUSCULAR HEMOGLOBIN 30.1 uug (23.8-33.4); MEAN CORPUSCULAR VOLUME 90.1 fL (73.0-96.2); PLATELET COUNT (AUTO) 229 K/uL (152-348)
[2022-06-29 07:41] LABS: CREATININE 0.8 mg/dL (0.6-1.3); MAGNESIUM 1.8 mg/dL (1.8-2.4); PHOSPHOROUS 4.6 mg/dL (2.5-4.9); POTASSIUM 5.8 mmol/L (3.5-5.1)
--- NOTE | 2022-06-29 08:51 | NUR ---
HOSIERY LOOPER SPOKE WITH ARIEL (DAUGHTER), CONCERNING PLAN OF CARE. DAUGHTER HAD SEVERAL QUESTIONS THAT REQUIRED THE PROVIDERS ATTENTION. PROVIDER WAS INFORMED AND GIVEN ARIEL'S CONTACT DETAILS. SIGRID East RN
[2022-06-29] MEDS ORDERED: BENAZEPRIL HCL 20 MG TABLET PO SCH (09:00)
[2022-06-29] MEDS: DEXAMETHASONE SOD PHOSPHATE 4 MG INJ IV SCH (10:08)
[2022-06-29 11:43] VITALS: BP 113/76
[2022-06-29 13:10] LABS: CREATININE 0.8 mg/dL (0.6-1.3); POTASSIUM 4.5 mmol/L (3.5-5.1)
[2022-06-29] MEDS ORDERED: SITA100T PO (13:36)
[2022-06-29] MEDS ORDERED: ALLO100T PO (13:36)
[2022-06-29] MEDS ORDERED: LEVO25TA2 PO (13:36)
[2022-06-29] MEDS ORDERED: METF-494 PO (15:53)
[2022-06-29] MEDS ORDERED: ICOS1CAP PO (15:53)
[2022-06-29] MEDS ORDERED: CYCL30DR EACHEYE (15:53)
--- NOTE | 2022-06-29 16:05 | NUR ---
BROUGHT HOME MADE SOUP, HOME MADE DRINKS AND WATERMELONS FOR PATIENT. GAME PROGRAMMER BROUGHT ITEMS TO PATIENTS'S ROOM AND INFORM PATIENT OF ITEMS. SIGRID East RN
[2022-06-29 16:36] VITALS: BP 128/78
--- NOTE | 2022-06-29 19:35 | NUR ---
Received Pt from day shift. Pt is A&Ox3. Pt is continuously spitting out green sputum. Pt refused Lotensin for blood pressure. Current vitals are BP: 133/78, HR: 70, RR: 18, SpO2: 100%, and T: 98.0 degrees. Pt on 2L NC. Will continue to monitor.
[2022-06-29 20:00] VITALS: BP 103/64
[2022-06-29] MEDS: BENAZEPRIL HCL 20 MG TABLET PO SCH (20:38)
--- NOTE | 2022-06-29 23:44 | NUR ---
Pt states he "takes allopurinol 100 mg daily as his home med for gout." Allopurinol is not currently ordered. Contacted JUAN Andres for possible order of allopurinol at approximately [phone] 06/29. Will update on response from PHYSICIAN PEDIATRICIAN.
[2022-06-29 23:56] VITALS: BP 133/78
[2022-06-30] MEDS: AZITHROMYCIN IV 500 MG in IV DEXTROSE 5% 250 ML IV SCH (03:00)
[2022-06-30 03:58] VITALS: BP 140/65
[2022-06-30 06:54] LABS: HEMATOCRIT 36.2 % (36.7-47.1); MEAN CORPUSCULAR HEMOGLOBIN 30.1 uug (23.8-33.4); MEAN CORPUSCULAR VOLUME 89.6 fL (73.0-96.2); PLATELET COUNT (AUTO) 243 K/uL (152-348)
[2022-06-30 07:07] LABS: CREATININE 0.8 mg/dL (0.6-1.3); MAGNESIUM 1.9 mg/dL (1.8-2.4); PHOSPHOROUS 3.2 mg/dL (2.5-4.9); POTASSIUM 3.6 mmol/L (3.5-5.1)
[2022-06-30] MEDS: BENAZEPRIL HCL 20 MG TABLET PO SCH ×2 (09:31→21:06)
[2022-06-30] MEDS: DEXAMETHASONE SOD PHOSPHATE 4 MG INJ IV SCH (09:32)
[2022-06-30] MEDS: BENZONATATE 100 MG CAPSULE PO SCH ×3 (09:42→16:42)
[2022-06-30 12:00] VITALS: BP 124/66
[2022-06-30] MEDS: MULTIVIT, IRON, MIN NO. 8, FA TABLET PO SCH (12:12)
[2022-06-30] MEDS: CHOLECALCIFEROL 1,000 UNIT TABLET PO SCH (12:12)
[2022-06-30] MEDS: ASCORBIC ACID 500 MG TABLET PO SCH (12:13)
[2022-06-30] MEDS: ENOXAPARIN SODIUM 40 MG/0.4 ML DISP.SYRIN SQ SCH (12:14)
[2022-06-30 16:00] VITALS: BP 115/70
[2022-06-30 20:39] VITALS: BP 136/78
[2022-07-01] VITALS: BP 128/78
[2022-07-01] MEDS: AZITHROMYCIN IV 500 MG in IV DEXTROSE 5% 250 ML IV SCH (03:03)
[2022-07-01 06:42] VITALS: BP 131/82
[2022-07-01 07:26] LABS: HEMATOCRIT 36.9 % (36.7-47.1); MEAN CORPUSCULAR HEMOGLOBIN 29.7 uug (23.8-33.4); MEAN CORPUSCULAR VOLUME 89.2 fL (73.0-96.2); PLATELET COUNT (AUTO) 253 K/uL (152-348)
[2022-07-01 07:40] LABS: CREATININE 0.7 mg/dL (0.6-1.3); MAGNESIUM 1.9 mg/dL (1.8-2.4); PHOSPHOROUS 2.4 mg/dL (2.5-4.9)
[2022-07-01] MEDS: BENAZEPRIL HCL 20 MG TABLET PO SCH ×2 (08:45→20:27)
[2022-07-01] MEDS: DEXAMETHASONE SOD PHOSPHATE 4 MG INJ IV SCH (08:45)
[2022-07-01] MEDS: MULTIVIT, IRON, MIN NO. 8, FA TABLET PO SCH (08:46)
[2022-07-01] MEDS: ASCORBIC ACID 500 MG TABLET PO SCH (08:46)
[2022-07-01] MEDS: BENZONATATE 100 MG CAPSULE PO SCH ×3 (08:46→16:28)
[2022-07-01] MEDS: CHOLECALCIFEROL 1,000 UNIT TABLET PO SCH (08:46)
[2022-07-01] MEDS: ENOXAPARIN SODIUM 40 MG/0.4 ML DISP.SYRIN SQ SCH (08:47)
[2022-07-01 11:43] VITALS: BP 126/70
[2022-07-01 16:00] VITALS: BP 148/85
[2022-07-01] MEDS ORDERED: NEUTRA PHOS PACKET PO ONE (16:00)
--- NOTE | 2022-07-01 17:04 | NUR ---
Pt. noted to be stable during the shift. Alert and oriented x4, Able to make the need known. Pt. needs total care. No c/o pain. All need attended and met. No acute distress noted. Compliance with the care given. Isolated due to covid 19 and no c/o SOB noted. Will keep monitoring the resident.
--- NOTE | 2022-07-01 19:34 | NUR ---
Received patient laying in bed comfortably. AAOx4. On 2L of O2 via NC PRN. Currently on room air, saturation 97%, no distress noted at this time. Has no productive cough at this time. Is SR on tele monitor, HR 88. Left FA IV site is intact and patent. No complaints of pain at this time. Condom cath is clean and intact. Safety and comfort measures enforced.
[2022-07-01 19:48] VITALS: BP 145/77
[2022-07-02] MEDS: AZITHROMYCIN IV 500 MG in IV DEXTROSE 5% 250 ML IV SCH (02:17)
[2022-07-02 05:43] VITALS: BP 141/111
[2022-07-02 05:45] VITALS: BP 177/99
[2022-07-02 06:29] VITALS: BP 170/93
--- NOTE | 2022-07-02 06:55 | NUR ---
Patient slept intermittently throughout the night. Communicated about little SOB, but stated "I feel a lot better" after being repositioned. Was able to cough out thin green sputum right after. On 2L NC PRN, is currently on 2L with 97% O2 sat. SR on tele monitor, HR 76. Last BP noted was 170/93. Will endorse for any addition to plan of care. No adverse reaction noted after antibiotic administration. Condom cath clean and intact. BMx1 during the shift. Safety and comfort care maintained. Needs were attended to and met. Communicated about any concerns and verbally understood. Will endorse to morning shift.
[2022-07-02 07:14] LABS: HEMATOCRIT 39.3 % (36.7-47.1); MEAN CORPUSCULAR HEMOGLOBIN 30.3 uug (23.8-33.4); MEAN CORPUSCULAR VOLUME 88.6 fL (73.0-96.2); PLATELET COUNT (AUTO) 255 K/uL (152-348)
[2022-07-02 07:37] LABS: CREATININE 0.8 mg/dL (0.6-1.3); MAGNESIUM 1.9 mg/dL (1.8-2.4); PHOSPHOROUS 2.8 mg/dL (2.5-4.9); POTASSIUM 3.9 mmol/L (3.5-5.1)
--- NOTE | 2022-07-02 08:00 | NUR ---
Pt is in no acute distress. Alert and oriented. pt has sensitive call light button secondary to pt is quadraplegic and muscular dystrophy, Muscular dystrophy. Repositioned pt for comfort. SCD on. PT on air mattress. Call light is within reach.
[2022-07-02] MEDS: CHOLECALCIFEROL 1,000 UNIT TABLET PO SCH (08:31)
[2022-07-02] MEDS: BENZONATATE 100 MG CAPSULE PO SCH ×3 (08:32→21:07)
[2022-07-02] MEDS: ASCORBIC ACID 500 MG TABLET PO SCH (08:32)
[2022-07-02] MEDS: BENAZEPRIL HCL 20 MG TABLET PO SCH ×2 (08:32→21:07)
[2022-07-02] MEDS: MULTIVIT, IRON, MIN NO. 8, FA TABLET PO SCH (08:33)
[2022-07-02] MEDS: DEXAMETHASONE SOD PHOSPHATE 4 MG INJ IV SCH (08:33)
[2022-07-02] MEDS: ENOXAPARIN SODIUM 40 MG/0.4 ML DISP.SYRIN SQ SCH (08:41)
[2022-07-02 09:01] LABS: THYROID STIMULATING HORMONE 3.342 mIU/mL (0.358-3.740)
[2022-07-02 09:24] LABS: URIC ACID 6.1 mg/dL (3.5-7.2)
[2022-07-02 12:00] VITALS: BP 148/91
[2022-07-02 16:00] VITALS: BP 158/88
--- NOTE | 2022-07-02 18:00 | NUR ---
Pt is in no acute distress. Condom cath changed. Pt denies any c/o pain.
[2022-07-02 20:45] VITALS: BP 164/81
[2022-07-03 00:15] VITALS: BP 141/73
[2022-07-03] MEDS: AZITHROMYCIN IV 500 MG in IV DEXTROSE 5% 250 ML IV SCH (02:43)
[2022-07-03 05:10] VITALS: BP 146/70
[2022-07-03] MEDS: ENOXAPARIN SODIUM 40 MG/0.4 ML DISP.SYRIN SQ SCH (08:08)
[2022-07-03] MEDS: DEXAMETHASONE SOD PHOSPHATE 4 MG INJ IV SCH (08:08)
[2022-07-03] MEDS: MULTIVIT, IRON, MIN NO. 8, FA TABLET PO SCH (08:09)
[2022-07-03] MEDS: CHOLECALCIFEROL 1,000 UNIT TABLET PO SCH (08:09)
[2022-07-03] MEDS: ASCORBIC ACID 500 MG TABLET PO SCH (08:09)
[2022-07-03] MEDS: BENZONATATE 100 MG CAPSULE PO SCH ×2 (08:09→12:38)
[2022-07-03] MEDS: BENAZEPRIL HCL 20 MG TABLET PO SCH (08:10)
[2022-07-03] MEDS: METOPROLOL TARTRATE 25 MG TABLET PO SCH ×2 (10:30→12:38)
[2022-07-03 11:57] VITALS: BP 104/74
[2022-07-03] MEDS ORDERED: METO25TA6 PO (15:23)
[2022-07-03] MEDS ORDERED: METH4TAB3 PO (15:23)
[2022-07-03] MEDS ORDERED: CHOL100062 PO (15:23)
[2022-07-03] MEDS ORDERED: ASPI-618 PO (15:23)
[2022-07-03] MEDS ORDERED: ASCO500T21 PO (15:23)
[2022-07-03] MEDS ORDERED: FAMO-132 PO (15:23)
[2022-07-03 16:29] VITALS: BP 136/78
--- NOTE | 2022-07-03 18:10 | NUR ---
Discharge instructions given to patient. Pt verbalized understanding. Pt unable to sign secondary to his weakness. Pt is in no acute distress. Instructed pt to isolate for 10 days from 06/28/22. No sob noted r/a 97%. Skin intact.
== END 2022-07-03 18:30 | disposition home health service (06) | DRG 177 ==
LOC: ER 15:28 → TELE3 17:00
PROVIDERS: ADMIT Nurse Practitioner Acute Care; ATTEND Internal Medicine
DX: U07.1 COVID-19 (principal); G82.50 Quadriplegia, unspecified; D68.69 Other thrombophilia; E87.1 Hypo-osmolality and hyponatremia; M48.56XA Collapsed vertebra, not elsewhere classified, lumbar region, initial encounter for fracture; G35 Multiple sclerosis; Z74.09 Other reduced mobility; E11.9 Type 2 diabetes mellitus without complications; E80.4 Gilbert syndrome; E87.5 Hyperkalemia; G71.00 Muscular dystrophy, unspecified; I10 Essential (primary) hypertension; N40.0 Benign prostatic hyperplasia without lower urinary tract symptoms; Z87.81 Personal history of (healed) traumatic fracture; Z90.49 Acquired absence of other specified parts of digestive tract; J20.8 Acute bronchitis due to other specified organisms; Z79.84 Long term (current) use of oral hypoglycemic drugs
CPT/HCPCS: 36415; 71045; 83605; 83735; 84100; 84443; 84484; 84550; 85025; 85730; 87040; 93005; A4663; A6213; A9150; G0378; J0456; J1100; J1650; J7040; J7050